=== PATIENT | male | born 1970 | race Caucasian/White ===

== ENCOUNTER 2018-07-23 22:42 | Inpatient (IN) | payer SELFPAY ==
[~2018-07-23] VITALS: Ht 157.5 cm; Wt 63.5 kg
[2018-07-23 23:00] VITALS: Ht 157.5 cm; Wt 63.5 kg
[2018-07-24 00:10] LABS: BASOPHIL % 0.1 % (0-2); PLATELET COUNT 168 x10^3mcL (130-400); RED CELL DISTRIBUTION WIDTH 14.2 % (11.5-14.5)
[2018-07-24 00:16] LABS: CALCIUM 8.4 mg/dL (8.5-10.1); CARBON DIOXIDE 17.8 mmol/L (21-32); CHLORIDE SERUM 92 mmol/L (98-107); CREATININE SERUM 1.2 mg/dL (0.7-1.3); GFR1 > 60 mL/min; GLUCOSE SERUM 123 mg/dL (74-106); SODIUM SERUM 134 mmol/L (136-145)
[2018-07-24 00:22] LABS: ALBUMIN 4.3 g/dL (3.4-5.0); ALKALINE PHOSPHATASE 108 U/L (46-116); ALT/SGPT 174 U/L (16-63); AMYLASE 89 U/L (25-115); AST/SGOT 356 U/L (15-37); BILIRUBIN TOTAL 1.3 mg/dL (0.20-1.00); LIPASE 948 IU/L (73-393); MAGNESIUM 2.4 mg/dL (1.8-2.4); TOTAL PROTEIN, SERUM 8.2 g/dL (6.4-8.2)
[2018-07-24 01:53] LABS: CHOLESTEROL/HDL RATIO 5.4; PHOSPHOROUS 3.3 mg/dL (2.5-4.9)
[2018-07-24 02:46] VITALS: BP 121/77
[2018-07-24 04:14] LABS: UA SPECIFIC GRAVITY >=1.030 (1.005-1.035); microscopic required? YES; urine erythrocyte 3+ (NEGATIVE)
[2018-07-24 04:30] LABS: AMPHETAMINE QUAL UR NONE DETECTED (See below)
[2018-07-24 06:08] VITALS: BP 110/73
[2018-07-24 07:38] LABS: ALBUMIN 3.4 g/dL (3.4-5.0); ALKALINE PHOSPHATASE 90 U/L (46-116); ALT/SGPT 127 U/L (16-63); AST/SGOT 284 U/L (15-37); BILIRUBIN TOTAL 0.98 mg/dL (0.20-1.00); CALCIUM 7.1 mg/dL (8.5-10.1); CARBON DIOXIDE 17.3 mmol/L (21-32); CHLORIDE SERUM 101 mmol/L (98-107); CREATININE SERUM 0.9 mg/dL (0.7-1.3); GFR1 > 60 mL/min; GLUCOSE SERUM 97 mg/dL (74-106); LIPASE 789 IU/L (73-393); MAGNESIUM 2.6 mg/dL (1.8-2.4); PHOSPHOROUS 2.5 mg/dL (2.5-4.9); POTASSIUM SERUM 4.2 mmol/L (3.5-5.1); SODIUM SERUM 138 mmol/L (136-145); TOTAL PROTEIN, SERUM 6.5 g/dL (6.4-8.2)
[2018-07-24 08:15] LABS: BASOPHIL % 0.3 % (0-2); RED CELL DISTRIBUTION WIDTH 14.2 % (11.5-14.5)
[2018-07-24 08:22] LABS: PLATELET COUNT 125 x10^3mcL (130-400)
[2018-07-24 08:27] VITALS: BP 114/64
[2018-07-24 12:06] VITALS: BP 109/61
[2018-07-24 16:46] VITALS: BP 107/57
[2018-07-24 21:09] VITALS: BP 108/60
[2018-07-25 04:54] VITALS: BP 109/60
[2018-07-25 06:19] LABS: BASOPHIL % 0.3 % (0-2)
[2018-07-25 06:49] LABS: PLATELET COUNT 96 x10^3mcL (130-400); RED CELL DISTRIBUTION WIDTH 14.7 % (11.5-14.5)
[2018-07-25 06:51] LABS: ALBUMIN 2.8 g/dL (3.4-5.0); ALKALINE PHOSPHATASE 81 U/L (46-116); ALT/SGPT 131 U/L (16-63); AST/SGOT 210 U/L (15-37); BILIRUBIN TOTAL 1.3 mg/dL (0.20-1.00); CALCIUM 7.4 mg/dL (8.5-10.1); CARBON DIOXIDE 25.4 mmol/L (21-32); CHLORIDE SERUM 107 mmol/L (98-107); CREATININE SERUM 0.7 mg/dL (0.7-1.3); GFR1 > 60 mL/min; GLUCOSE SERUM 112 mg/dL (74-106); LIPASE 1905 IU/L (73-393); MAGNESIUM 2.4 mg/dL (1.8-2.4); POTASSIUM SERUM 3.5 mmol/L (3.5-5.1); SODIUM SERUM 142 mmol/L (136-145); TOTAL PROTEIN, SERUM 5.7 g/dL (6.4-8.2)
[2018-07-25 08:30] VITALS: BP 106/65
[2018-07-25 13:28] VITALS: BP 111/63
[2018-07-25 18:18] VITALS: BP 109/63
[2018-07-26 04:01] VITALS: BP 117/72
[2018-07-26 06:28] LABS: BASOPHIL % 0.3 % (0-2); RED CELL DISTRIBUTION WIDTH 14.3 % (11.5-14.5)
[2018-07-26 06:40] LABS: ALKALINE PHOSPHATASE 84 U/L (46-116); ALT/SGPT 142 U/L (16-63); AST/SGOT 204 U/L (15-37); CALCIUM 7.9 mg/dL (8.5-10.1); CARBON DIOXIDE 24.4 mmol/L (21-32); CHLORIDE SERUM 107 mmol/L (98-107); CREATININE SERUM 0.6 mg/dL (0.7-1.3); GFR1 > 60 mL/min; GLUCOSE SERUM 100 mg/dL (74-106); PHOSPHOROUS 2.2 mg/dL (2.5-4.9); SODIUM SERUM 141 mmol/L (136-145)
[2018-07-26 06:42] LABS: ALBUMIN 2.8 g/dL (3.4-5.0); TOTAL PROTEIN, SERUM 5.6 g/dL (6.4-8.2)
[2018-07-26 06:43] LABS: LIPASE 1683 IU/L (73-393)
[2018-07-26 06:44] LABS: POTASSIUM SERUM 2.8 mmol/L (3.5-5.1)
[2018-07-26 06:55] LABS: PLATELET COUNT 84 x10^3mcL (130-400)
[2018-07-26 08:19] VITALS: BP 112/64
[2018-07-26 12:08] VITALS: BP 111/66
[2018-07-26 16:03] VITALS: BP 121/64
[2018-07-26 21:29] VITALS: BP 131/78
[2018-07-27 06:27] LABS: BASOPHIL % 0.4 % (0-2); RED CELL DISTRIBUTION WIDTH 14.5 % (11.5-14.5)
[2018-07-27 06:29] VITALS: BP 126/77
[2018-07-27 06:57] LABS: ALKALINE PHOSPHATASE 91 U/L (46-116); ALT/SGPT 147 U/L (16-63); AST/SGOT 142 U/L (15-37); BILIRUBIN TOTAL 0.83 mg/dL (0.20-1.00); CALCIUM 8.4 mg/dL (8.5-10.1); CARBON DIOXIDE 22.8 mmol/L (21-32); CHLORIDE SERUM 103 mmol/L (98-107); CREATININE SERUM 0.7 mg/dL (0.7-1.3); GFR1 > 60 mL/min; GLUCOSE SERUM 86 mg/dL (74-106); LIPASE 1102 IU/L (73-393); PHOSPHOROUS 2.4 mg/dL (2.5-4.9); POTASSIUM SERUM 3.4 mmol/L (3.5-5.1); SODIUM SERUM 139 mmol/L (136-145); TOTAL PROTEIN, SERUM 6.3 g/dL (6.4-8.2)
[2018-07-27 07:01] LABS: PLATELET COUNT 104 x10^3mcL (130-400)
[2018-07-27 07:05] LABS: ALBUMIN 3.1 g/dL (3.4-5.0)
[2018-07-27 09:06] VITALS: BP 130/71
[2018-07-27 14:29] VITALS: BP 115/70
[2018-07-27 16:09] VITALS: BP 115/70
== END 2018-07-27 16:43 | disposition home or self-care (01) | DRG 438 ==
LOC: ED 22:42 → DU 07-24 01:06
PROVIDERS: Emergency Medicine; Internal Medicine; ADMIT Family Medicine
DX: K85.20 Alcohol induced acute pancreatitis without necrosis or infection (principal); N17.0 Acute kidney failure with tubular necrosis; E87.2 Acidosis; E44.0 Moderate protein-calorie malnutrition; F10.120 Alcohol abuse with intoxication, uncomplicated; Y90.9 Presence of alcohol in blood, level not specified; E78.5 Hyperlipidemia, unspecified; R74.0 Nonspecific elevation of levels of transaminase and lactic acid dehydrogenase [LDH]; E83.42 Hypomagnesemia; E83.41 Hypermagnesemia; Z90.49 Acquired absence of other specified parts of digestive tract; Z68.23 Body mass index [BMI] 23.0-23.9, adult
CPT/HCPCS: 83880; G0480; J2060; J2405; J3010; J3411; J3475; J3480; J3490; J7030; Q0092

== ENCOUNTER 2018-09-21 14:56 | Inpatient (IN) | payer MEDICAID ==
[~2018-09-21] VITALS: Ht 157.5 cm; Wt 67.6 kg
[2018-09-21 15:04] VITALS: Ht 157.5 cm; Wt 67.6 kg
--- NOTE | 2018-09-21 15:06 | NUR ---
PT AWAKE, ALERT, NO VOMITING, NO SIGNS OF RESP DISTRESS NOTED.
--- NOTE | 2018-09-21 15:33 | NUR ---
DR BLACK AT BEDSIDE FOR MSE
--- NOTE | 2018-09-21 15:35 | NUR ---
PT BIB EX FOR C/O ETOH WITHDRAWAL. PT STS HE HAS BEEN A HEAVY DRINKER FOR 10 YEARS- PT STS HE STOPPED FOR 3 DAYS BUT CONTINUED TO DRINK HEAVILY. EX AT BEDSIDE STS PT DRINKS "MORE THAN 12 SMAL CANS" OF BEER DAILY. PER EX AND PT, PT HAS HAD MORE THAN 12 DRINKS PER DAY IN THE LAST 4 DAYS. PT STS LAST DRINK WAS 2 DAYS AGO "I WANT TO STOP DRINKING." MILD TREMORS SEEN
[2018-09-21 16:03] LABS: BASOPHIL % 0.1 % (0-2); PLATELET COUNT 244 x10^3mcL (130-400); RED CELL DISTRIBUTION WIDTH 14.2 % (11.5-14.5)
[2018-09-21 16:10] LABS: CALCIUM 9.2 mg/dL (8.5-10.1); CARBON DIOXIDE 21.7 mmol/L (21-32); CHLORIDE SERUM 100 mmol/L (98-107); CREATININE SERUM 1.3 mg/dL (0.7-1.3); GFR1 > 60 mL/min; GLUCOSE SERUM 142 mg/dL (74-106); POTASSIUM SERUM 4.2 mmol/L (3.5-5.1); SODIUM SERUM 138 mmol/L (136-145)
[2018-09-21 16:14] LABS: ALBUMIN 4.1 g/dL (3.4-5.0); ALKALINE PHOSPHATASE 81 U/L (46-116); ALT/SGPT 41 U/L (16-63); AST/SGOT 28 U/L (15-37); TOTAL PROTEIN, SERUM 7.8 g/dL (6.4-8.2)
[2018-09-21 16:14] LABS: UA SPECIFIC GRAVITY >=1.030 (1.005-1.035); microscopic required? YES; urine erythrocyte 2+ (NEGATIVE)
--- NOTE | 2018-09-21 17:00 | NUR ---
NO TREMORS SEEN AT THIS TIME. PT CALM AND COOPERATIVE.
--- NOTE | 2018-09-21 17:59 | NUR ---
PT REPORTS FEELING BETTER. HR STILL ELEVATED
--- NOTE | 2018-09-21 18:49 | NUR ---
PT REPORTS HE FEELS BETTER. HR DEC TO 104 ON CM AND CONFIRMED WITH RADIAL PULSE PALPATION. NO TREMORS SEEN. PT IS CALM
[2018-09-21 19:06] LABS: AMPHETAMINE QUAL UR NONE DETECTED (See below)
--- NOTE | 2018-09-21 19:12 | NUR ---
REPORT GIVEN TO RADHA ROSE
[2018-09-21 19:36] LABS: CHOLESTEROL/HDL RATIO 4.3; MAGNESIUM 1.4 mg/dL (1.8-2.4); PHOSPHOROUS 2.5 mg/dL (2.5-4.9)
--- NOTE | 2018-09-21 19:42 | NUR ---
PT REPORT CALLED TO IDA ROSE TO ASSUME PT CARE.
--- NOTE | 2018-09-21 19:45 | NUR ---
PT TRANSFERRED TO [address] BY [facility] BY JAMES ROSE AND BRIDGER EMT. PT ON MONITOR FOR TRANSPORT. PT AOX4, RESP EVEN AND UNLABORED, NO ACUTE DISTRESS NOTED. PT ACCEPTED BY IDA ROSE TO ASSUME PT CARE. PT AMBULATED FROM [facility] TO BED WITH STEADY GAIT.
[2018-09-21 20:48] VITALS: BP 116/73
--- NOTE | 2018-09-21 20:57 | NUR ---
RECEIVED PT FROM ER, PT ADMIT FOR ETOH WITHDRAWAL, PT IS A/O X4, VERBAL REPSONSIVE, LUNG SOUND CLEAR BILATERAL, NO COUGH, NO SOB, PT IS ON TELE 3, NSR, DENY ANY CHEST PAIN OR DISCOMFORT, BOWEL SOUND PRESENT ALL 4 QUADRATNS, NO DISTENTION, NO TENDER. PEDAL PULSE PRESENT BOTH FEET, NO EDEMA, IV AT LEFT FA, NO LEAKING, NO INFILTRAITON. PT STATE HIS LAST DRINK WAS YESTERDAY. HE STATE HE HAS BEEN DRINK LAST WEEK WHOLE WEAK, SO HE STOP THE YESTERDAY BUT THIS MORNING HE START THE TREMOR AND ETOH WITHDRAWAL, PT STATE HE USUALLY DRINK 15-20 CANS OF BEER EVERY DAY. PT APPEAR INBALANCE WHILE AMBULATE AND TREMOR ON BOTH HANDS AT THIS MOMENT, ALL ADLS ASSIST, ALL NEED MET, CALL LIGHT IN REACH, WILL CONTINUE TO MONITOR.
--- NOTE | 2018-09-22 00:15 | NUR ---
PATIENT'S EYES ARE CLOSED, BREATHS EVEN. IV INFUSING WITHOUT ERYTHEMA OR INFILTRATION. SEIZURE PADS IN PLACE FOR ALCOHOL WITHDRAWAL. SCDS ON. CALL LIGHT AND BEDSDIE TABLE WITHIN REACH.
[2018-09-22 05:12] VITALS: BP 122/77
--- NOTE | 2018-09-22 06:33 | NUR ---
PATIENT SLEPT WELL THROUGH THE NIGHT. PATIETN IS AWAKE. DENIES PAIN. NO SOB ON RA. IV IFNUSING WITHOUT ERYTHEMA OR INFILTRATION. HANDS ARE STEADY, NO TREMORS NOTED. BED LOCKED AND IN LOWEST POSITION, CALL LIGHT AND BEDSIDE TABLE WITHIN REACH. WILL ENDORSE CARE TO DAYSHIFT NURSE.
[2018-09-22 06:38] LABS: BASOPHIL % 0.4 % (0-2); PLATELET COUNT 193 x10^3mcL (130-400); RED CELL DISTRIBUTION WIDTH 14.4 % (11.5-14.5)
[2018-09-22 07:16] LABS: CALCIUM 8.3 mg/dL (8.5-10.1); CARBON DIOXIDE 24.5 mmol/L (21-32); CHLORIDE SERUM 106 mmol/L (98-107); GFR1 > 60 mL/min; GLUCOSE SERUM 98 mg/dL (74-106); PHOSPHOROUS 3.1 mg/dL (2.5-4.9); POTASSIUM SERUM 4.3 mmol/L (3.5-5.1); SODIUM SERUM 141 mmol/L (136-145)
--- NOTE | 2018-09-22 07:25 | NUR ---
RECEIVED PT IN NO ACUTE DISTRESS. RESTING IN BED. AAOX4. SEIZURE PRECAUTIONS IN PLACE. RESP EVEN AND UNLABORED ON RA. NO TREMORS NOTED AT THIS TIME. IVF INFUSING, NO REDNESS OR SWELLING. HOB ELEVATED. BED IN LOW POSITION, CALL LIGHT WITHIN REACH. WILL CONTINUE TO MONITOR.
[2018-09-22 08:06] VITALS: BP 114/86
--- NOTE | 2018-09-22 10:37 | NUR ---
PT SITTING UP ON THE SIDE OF THE BED. NO ACUTE DISTRESS. AMBULATED TO BATHROOM AND BACK TO BED, GAIT STEADY. REPORTS LOOSE STOOL. IVF INFUSING, NO REDNESS OR SWELLING. CALL LIGHT WITHN REACH. WILL CONTINUE TO MONITOR.
--- NOTE | 2018-09-22 10:43 | NUR ---
Discount pharmacy card and list to low cost medical clinics given to patient by Lashay.
[2018-09-22] MEDS ORDERED: FOL1 PO (12:33)
[2018-09-22] MEDS ORDERED: THI100 PO (12:34)
[2018-09-22] MEDS ORDERED: THERA-M CAPLET1 EACH PO (12:35)
[2018-09-22 13:13] VITALS: BP 121/74
[2018-09-22 14:15] VITALS: BP 121/74
--- NOTE | 2018-09-22 15:18 | NUR ---
PT DISCHARGED TO HOME IN NO ACUTE DISTRESS. AWAKE, ALERT, AND ORIENTED. VSS. TRANSPORTED VIA WHEELCHAIR. RX GIVEN. DISCHARGE EDUCATION PROVIDED, PT VERBALIZED UNDERSTANDING. INSTRUCTED PT TO FOLLOW UP WITH PCP. IV DC'D WITH CATHETER INTACT. TELE REMOVED. BELONGINGS WITH PT. ALEJANDRO MURPHY ACCOMPANIED PT TO LOBBY.
== END 2018-09-22 15:15 | disposition home or self-care (01) | DRG 775 ==
LOC: ED 14:56 → DU 18:43
PROVIDERS: Specialist; ADMIT Internal Medicine
DX: F10.239 Alcohol dependence with withdrawal, unspecified (principal); F10.20 Alcohol dependence, uncomplicated; N17.0 Acute kidney failure with tubular necrosis; E83.42 Hypomagnesemia; E78.5 Hyperlipidemia, unspecified; Z68.25 Body mass index [BMI] 25.0-25.9, adult; Z72.0 Tobacco use
CPT/HCPCS: G0378; G0480; J2060; J7030; Q0092

== ENCOUNTER 2019-01-05 17:53 | Inpatient (IN) | payer SELFPAY ==
[~2019-01-05] VITALS: Ht 157.5 cm; Wt 60.4 kg
[~2019-01-05 17:53] MED LIST: FOL1 PO; THERA-M CAPLET1 EACH PO; THI100 PO
[2019-01-05 19:27] LABS: BASOPHIL % 0.2 % (0-2); PLATELET COUNT 147 x10^3mcL (130-400); RED CELL DISTRIBUTION WIDTH 14.1 % (11.5-14.5)
[2019-01-05 19:42] LABS: CALCIUM 8.5 mg/dL (8.5-10.1); CARBON DIOXIDE 24.4 mmol/L (21-32); CHLORIDE SERUM 94 mmol/L (98-107); CREATININE SERUM 0.9 mg/dL (0.7-1.3); GFR1 > 60 mL/min; GLUCOSE SERUM 107 mg/dL (74-106); POTASSIUM SERUM 3.6 mmol/L (3.5-5.1); SODIUM SERUM 135 mmol/L (136-145)
[2019-01-05 19:48] LABS: ALBUMIN 4.6 g/dL (3.4-5.0); ALKALINE PHOSPHATASE 102 U/L (46-116); ALT/SGPT 113 U/L (16-63); AST/SGOT 164 U/L (15-37); BILIRUBIN TOTAL 1.35 mg/dL (0.20-1.00); MAGNESIUM 2.6 mg/dL (1.8-2.4); TOTAL PROTEIN, SERUM 8.4 g/dL (6.4-8.2)
[2019-01-05 20:57] LABS: UA SPECIFIC GRAVITY <=1.005 (1.005-1.035); microscopic required? YES; urine erythrocyte 2+ (NEGATIVE)
[2019-01-06 00:08] LABS: CHOLESTEROL/HDL RATIO 3.4
[2019-01-06 00:17] VITALS: BP 125/75
[2019-01-06 05:30] VITALS: BP 113/68
[2019-01-06 06:28] LABS: AMPHETAMINE QUAL UR NONE DETECTED (See below)
[2019-01-06 07:13] LABS: BASOPHIL % 0.3 % (0-2); RED CELL DISTRIBUTION WIDTH 13.9 % (11.5-14.5)
[2019-01-06 07:18] LABS: PLATELET COUNT 99 x10^3mcL (130-400)
[2019-01-06 08:00] LABS: CALCIUM 7.3 mg/dL (8.5-10.1); CARBON DIOXIDE 22.8 mmol/L (21-32); CHLORIDE SERUM 100 mmol/L (98-107); CREATININE SERUM 0.8 mg/dL (0.7-1.3); GFR1 > 60 mL/min; GLUCOSE SERUM 73 mg/dL (74-106); MAGNESIUM 2.2 mg/dL (1.8-2.4); PHOSPHOROUS 2.9 mg/dL (2.5-4.9); POTASSIUM SERUM 3.3 mmol/L (3.5-5.1); SODIUM SERUM 137 mmol/L (136-145)
[2019-01-06 08:13] VITALS: BP 105/64
[2019-01-06 12:00] VITALS: BP 106/60
[2019-01-06 16:27] VITALS: BP 100/62
[2019-01-06 19:45] VITALS: BP 101/62
[2019-01-07 04:44] VITALS: BP 108/64
[2019-01-07 07:17] LABS: BASOPHIL % 0.4 % (0-2); RED CELL DISTRIBUTION WIDTH 14.1 % (11.5-14.5)
[2019-01-07 07:23] LABS: CALCIUM 7.5 mg/dL (8.5-10.1); CARBON DIOXIDE 27.2 mmol/L (21-32); CHLORIDE SERUM 100 mmol/L (98-107); CREATININE SERUM 0.8 mg/dL (0.7-1.3); GFR1 > 60 mL/min; GLUCOSE SERUM 87 mg/dL (74-106); PHOSPHOROUS 2.3 mg/dL (2.5-4.9); POTASSIUM SERUM 3.1 mmol/L (3.5-5.1); SODIUM SERUM 137 mmol/L (136-145)
[2019-01-07 07:44] LABS: PLATELET COUNT 81 x10^3mcL (130-400)
[2019-01-07 08:31] VITALS: BP 104/72
[2019-01-07 12:08] VITALS: BP 115/80
[2019-01-07] MEDS ORDERED: PRI20 PO (12:39)
[2019-01-07 13:00] VITALS: BP 115/80
[2019-01-07 14:56] VITALS: Ht 157.5 cm; Wt 60.4 kg
== END 2019-01-07 15:23 | disposition home or self-care (01) | DRG 438 ==
LOC: ED 17:53 → DU 23:14
PROVIDERS: Emergency Medicine; ADMIT General Practice
DX: K85.20 Alcohol induced acute pancreatitis without necrosis or infection (principal); G92 Toxic encephalopathy; E87.1 Hypo-osmolality and hyponatremia; Z60.2 Problems related to living alone; R74.0 Nonspecific elevation of levels of transaminase and lactic acid dehydrogenase [LDH]; E83.41 Hypermagnesemia; E78.5 Hyperlipidemia, unspecified; F10.929 Alcohol use, unspecified with intoxication, unspecified; Y90.9 Presence of alcohol in blood, level not specified; Z90.49 Acquired absence of other specified parts of digestive tract; Z81.1 Family history of alcohol abuse and dependence; Z23 Encounter for immunization; Z79.899 Other long term (current) drug therapy
CPT/HCPCS: 90658; G0378; G0480; J2405; J7030; Q0092